=== PATIENT | female | born 1955 | race Caucasian/White ===

== ENCOUNTER 2021-11-10 09:22 | Emergency (ER) | payer MEDICARE, MEDICAID ==
[~2021-11-10] VITALS: Ht 172.7 cm; Wt 63.5 kg
[~2021-11-10 09:22] MED LIST: ASCO-339 PO; ASPI-1155 PO; ATOR40TA68 PO; CA C1TAB92 PO; GLU500 PO; LOSA1TAB37 PO; MULT-1164 PO; NPH,100V SUBCUT; POTA10TA PO
[2021-11-10 09:30] VITALS: BP_SYST 127
--- NOTE | 2021-11-10 09:30 | NUR ---
Patient to ER bed 05 to gown for evaluation. Side rails up.
--- NOTE | 2021-11-10 09:54 | NUR ---
Dr Pop evaluating patient at bedside
--- NOTE | 2021-11-10 10:00 | NUR ---
MD MAGANA AT BEDSIDE FOR ASSESS. PT VSS. NAD NOTED. DENIES PAIN AT THIS TIME. AWAITING ADDITIONAL ORDERS. WILL CONT TO MONITOR PT.
[2021-11-10] MEDS ORDERED: TRAM50TA PO (11:38)
[2021-11-10] MEDS ORDERED: traMADol HCL HCL 50 MG TABLET (ULTRAM) PO ONE (11:45)
--- NOTE | 2021-11-10 11:45 | NUR ---
PT PENDING DISCHARGE, [facility] GRIJALVA AWAITING INSURANCE VERIFICATION TO [facility]. VSS. NAD NOTED. WILL CONT TO MONITOR PT.
--- NOTE | 2021-11-10 13:37 | NUR ---
accucheck 137, primary RN was informed
--- NOTE | 2021-11-10 13:37 | NUR ---
knee brace applied to patient's right knee
--- NOTE | 2021-11-10 13:42 | NUR ---
conservator blessing at [phone] authorized signature of knee brace agreement
[2021-11-10 14:23] VITALS: BP_SYST 127
--- NOTE | 2021-11-10 14:24 | NUR ---
Patient given written and verbal discharge instructions and verbalizes understanding. ER MD discussed with patient the results and treatment provided. Patient in stable condition. ID arm band removed. no Rx given. Patient educated on pain management and to follow up with PMD. Pain Scale 0. Opportunity for questions provided and answered. Medication side effect fact sheet provided.
== END 2021-11-10 14:23 | disposition home or self-care (01) ==
LOC: SED 09:22
DX: S82.141A Displaced bicondylar fracture of right tibia, initial encounter for closed fracture (principal); E11.9 Type 2 diabetes mellitus without complications; I10 Essential (primary) hypertension; W18.30XA Fall on same level, unspecified, initial encounter; Y93.89 Activity, other specified; Y92.89 Other specified places as the place of occurrence of the external cause; Y99.8 Other external cause status
CPT/HCPCS: 72170-TC; 73560-TC; 73590-TC; 82962; 99284; 99285